=== PATIENT | female | born 1955 | race Caucasian/White ===

== ENCOUNTER 2016-06-13 10:09 | Emergency (ER) | payer OTHER ==
--- NOTE | 2016-06-13 10:49 | DIAGNOSTIC IMAGING REPORT ---
PROCEDURE: XR CHEST 1 VIEW INDICATION: SHORTNESS OF BREATH TECHNIQUE: Portable AP view 10:40 a.m. COMPARISON: 03/19/2016 chest FINDINGS: Allowing for overlying wires and electrodes, lungs are hyperexpanded, although clear (basilar parenchymal scarring). Heart and mediastinum are normal. Thorax is normal. IMPRESSION: 1. Pulmonary hyperexpansion and chronic obstructive pulmonary disease.
--- NOTE | 2016-06-13 11:52 | ED NURSING NOTES ---
Clinical Report - Nurses [facility] [address] [place] [address] 06/13/2016 10:09 Patient: WILFREDO GROVE V TRIAGE Triage time 1016 PM. Acuity: LEVEL 4. Chief Complaint: FALL OUT OF BED. Alert. No acute distress. SOFIYA COMA SCORE: [place] Coma Scale: 15- eyes open spontaneously (4); best verbal response- oriented x 4 (5); best motor response- obeys commands (6). --10:27 Krupa Ott R.N. 10:17 06/13/16. BP: 130/64 (regular adult cuff) taken on the left arm, via an automated monitor, while sitting. HR: 70. RR: 18. O2 saturation: 89% on room air. Temp: 98.4 F (oral). Pain level now: 9/10. Additional comments: placed on O2. --10:27 Krupa Ott R.N. Weight: 54.4 kg stated. Height/Length: 65 inches Per Patient. BMI: 20. --10:18 Krupa Ott R.N. Medications Advair Diskus Inhalation. Albuterol Sulfate ER Oral. Atrovent HFA Inhalation. Coreg Oral. Lisinopril Oral. Sertraline HCl Oral. Simvastatin Oral. Spiriva HandiHaler Inhalation. Ventolin HFA Inhalation. --10:19 Krupa Ott R.N. PredniSONE Oral 25 mg, , weaning- as per pt. --10:56 Krupa Ott R.N. Allergies Codeine. Penicillins. --10:19 Krupa Ott R.N. Medication/allergy information source: the patient. --10:27 Krupa Ott R.N. History Arrived by private vehicle. Historian: patient. Primary physician (in [facility]). ( Pt states 2 days ago while getting out of bed tripped over a cord and fell out of bed, pt states fell onto the heating "propane device" on her left side, hitting her left breast area, left elbow and arm. Here to get evaluated due to feeling SOB. Pt is on oxygen at night at home but has been using oxygen around the clock. Here to get evaluated). Location of injuries: left breast and left axilla. This occurred (3 days). Occurred at home. She has had difficulty breathing. No loss of consciousness. No alteration in mental status, dizziness, neck pain, extremity pain or back pain. No trouble walking or limited ROM present. Treatment [employer]: Recently seen in a medical facility; treatment- pain medication. (heating, oxy). Trauma activation: Pre-hospital notification of patient arrival was not received. PAST MEDICAL HX: Tetanus status: up-to-date. Immunizations: up-to-date. SOCIAL HX: Smoker- current status unknown. No alcohol use or drug use. No infectious disease exposure. ABUSE ASSESSMENT: No report of abuse. SELF HARM ASSESSMENT: A self harm assessment was performed. The patient answered "no" to the question "Do you have thoughts of harming or killing yourself?" and "Have you recently had thoughts about harming or killing others?". FALL RISK ASSESSMENT: Fall risk assessment completed. No fall risk identified. NUTRITIONAL RISK ASSESSMENT: The nutritional risk assessment revealed no deficiencies. FUNCTIONAL ASSESSMENT: Functional assessment: no impairments noted. LEARNING NEEDS ASSESSMENT: The learning needs assessment revealed no barriers. SKIN INTEGRITY ASSESSMENT: Skin integrity risk assessment completed. No skin integrity risk identified. --10:27 Krupa Ott R.N. SOCIAL HX: History of weekly drug use: marijuana. Recently used drugs yesterday. --11:26 Krupa Ott R.N. SOCIAL HX: ( Pt now admits to doing "pot will probably come up in my urine"). --11:27 Krupa Ott R.N. PROBLEMS: Rib Fracture. Chest Wall Pain. Cystitis. COPD - Chronic Obstructive Pulmonary Disease. Pneumonia. Emphysema. Anxiety Reaction. Atypical Chest Pain. Lifestyle / Substance Problems. Immunizations. LNMP - Last Normal Menstrual Period. Depression. Osteoporosis. --10:20 Krupa Ott R.N. Chest Pain [RuleOut]. COPD - Chronic Obstructive Pulmonary Disease [RuleOut]. Pleurisy [RuleOut]. --10:20 Krupa Ott R.N. ADDITIONAL SURGERIES: . Surgery bilateral foot surgery ( small toe). --10:20 Krupa Ott R.N. Interventions ID band on patient. --10:27 Krupa Ott R.N. PHYSICAL ASSESSMENT To room via wheelchair. GENERAL / NEURO / PSYCH: Alert. Oriented X 4. Appears in no acute distress. Appears in pain. RESPIRATORY: Decreased breath sounds in the bases bilaterally; decreased breath sounds in the right mid-lung and upper lung; decreased breath sounds in the left mid-lung in the bases bilaterally and upper lung. CVS: Left breast area : tenderness. No laceration or deformity. Capillary refill less than 2 seconds. GI / : Abdomen soft and nontender. EXTREMITIES: Left elbow: tenderness of the area of the posterior and lateral elbow. No deformity. Left forearm. SKIN: Skin intact. Skin is warm and dry. --10:30 Krupa Ott R.N. NURSING PROGRESS NOTES 10:18 06/13/16. BP: 125/61. HR: 69. RR: 18. O2 saturation: 97% on nasal cannula at 2 liters/minute. Pain level now: 11/27. --10:28 Krupa Ott R.N. The initial plan of care for this patient has been created This plan of care was discussed with the patient. Warming measures: blanket applied. Reassurance given. Two patient identifiers checked. Call light placed in reach. Side rails up x 1. Bed placed in lowest position. Brakes of bed on. --10:28 Krupa Ott R.N. 10:29 06/13/2016 Duoneb (Ipratropium-Albuterol) Neb TX Nebulizer 1 unit dose given. Given by the respiratory therapist. Allergies verified and confirmed 5 rights. --10:29 Shiela Madison 10:29 06/13/2016 Albuterol Neb TX Nebulizer 2 unit dose given. Given by the respiratory therapist. Allergies verified and confirmed 5 rights. --10:29 Shiela Madison 10:33 06/13/2016 Site #1 started via IV in the left antecubital space with an 20g angiocath; one attempt. Blood drawn: rainbow set. Labeled in the presence of the patient. --10:43 Krupa Ott R.N. 10:38 06/13/2016 Dilaudid (HYDROmorphone HCl PF) IVP 0.5 mg given. via site #1. Allergies verified, confirmed 5 rights and sedative warning given to the patient. IV patency established. IV site checked: no pain, redness, or swelling. IV flushed thoroughly pre- and post-medication administration. IVP given by RN. --10:43 Krupa Ott R.N. 10:43 06/13/2016 SOLU-MEDROL (MethylPREDNISolone Sodium Succ) IVP 125 mg given over 2 minute(s) via site #1. Allergies verified and confirmed 5 rights. IV patency established. IV site checked: no pain, redness, or swelling. IV flushed thoroughly pre- and post-medication administration. IVP given by RN. --10:43 Krupa Ott R.N. 10:49 06/13/2016 Started bag #1 500 mL IV Fluids IV NS (Saline); at 500 mL/hr over 1 hour(s) via site #1 via IV pump. Allergies verified and confirmed 5 rights. IV patency established. IV site checked: no pain, redness, or swelling. IV flushed thoroughly pre- and post-medication administration. --10:49 Krupa Ott R.N. 10:49 06/13/2016 Aspirin PO Tablets 325 mg given. Allergies verified and confirmed 5 rights. --10:49 Krupa Ott R.N. 10:51 06/13/2016 Zofran (Ondansetron HCl) IVP 4 mg given over 2 minute(s) via site #1. Allergies verified and confirmed 5 rights. IV patency established. IV site checked: no pain, redness, or swelling. IV flushed thoroughly pre- and post-medication administration. IVP given by RN. --10:51 Krupa Ott R.N. 10:51 06/13/16. BP: 120/79 (regular adult cuff) taken on the right arm, via an automated monitor, while lying. HR: 64. RR: 14. O2 saturation: 94% on room air. Pain level now: 06/27. --10:55 Krupa Ott R.N. Reassurance given. Reassessment after oxygen administered and intervention. She is calm and has had no adverse reaction. Overall patient status is improved- she states feels better. ( post breathing tx and pain meds, patient states feeling "better"). GENERAL / NEURO / PSYCH: The patient reports pain is still present but improving and currently mild in severity (left cage/lateral). RESPIRATORY: Wheezes bilaterally; decreased breath sounds and wheezes right lung base and mid-lung; left lung base and mid-lung. Call light placed in reach. --10:55 Krupa Ott R.N. Cardiac rhythm: normal sinus rhythm. --10:55 Krupa Ott R.N. EKG time: (10:37 AM). EKG was performed by a tech and shown to the ED physician. --11:01 Neville Mary 11:14 06/13/16. BP: 127/71 (regular adult cuff) taken on the right arm, via an automated monitor, while lying. HR: 68. RR: 14. O2 saturation: 94% on room air. Pain level now: 06/27. --11:16 Krupa Ott R.N. Cardiac rhythm: normal sinus rhythm. --11:16 Krupa Ott R.N. 11:06/13/16. BP: 143/69. HR: 66. RR: 14. O2 saturation: 97% on nasal cannula at 2 liters/minute. Temp: 98.3 F (oral). Pain level now: 06/27. --11:28 Krupa Ott R.N. Cardiac rhythm: normal sinus rhythm. Reassurance given. Call light placed in reach. --11:28 Krupa Ott R.N. 11:06/13/2016 Zofran IVP Response: no adverse reaction. --11:28 Krupa Ott R.N. 11:06/13/2016 Aspirin PO Response: no adverse reaction. --11:29 Krupa Ott R.N. 11:06/13/2016 SOLU-MEDROL IVP Response: no adverse reaction. --11:29 Krupa Ott R.N. 11:06/13/2016 Dilaudid IVP Response: no adverse reaction. --11:29 Ott, Krupa, R.N. Patient ID band checked for patient name and birthdate: patient confirmed. Instructions provided to collect clean catch urine and patient verbalized understanding. Clean catch urine collected with return of yellow-colored clear urine; odor is normal; sample sent to lab for urinalysis and drug screen. Specimen labeled in the presence of the patient. --11:31 Mary Lozada 12:00 06/13/2016 IV Fluids IV NS Discontinued: upon discharge. Total amount infused: 600 mL. IV patency established. IV site checked: no pain, redness, or swelling. IV flushed thoroughly. --12:08 Krupa Ott R.N. DISPOSITION / DISCHARGE 12:02 06/13/2016 Site #1 removed upon discharge. Catheter intact. Manual pressure applied. --12:02 Krupa Ott R.N. Cardiac rhythm: normal sinus rhythm. Departure time: 1210 PM. Condition at departure: improved. The goals identified in the patient's plan of care were met. No learning barriers present. Reviewed medication(s) side effects, precautions, dosing and course information. Prescription(s) given to the patient. Patient verbalized understanding. Written instructions provided in Albanian. Discharge instructions not provided and reviewed with the patient. The patient was discharged by the physician. She was discharged home and accompanied by spouse. She left the Emergency Department ambulatory and via private vehicle. Family member driving. FALL RISK ASSESSMENT: Fall risk assessment completed. No fall risk identified. --12:09 Krupa Ott R.N. 12:02 06/13/16. BP: 142/65. HR: 78. RR: 18. O2 saturation: 94% on room air. Temp: 98.6 F (oral). Pain level now: 06/27. --12:09 Krupa Ott R.N. Locked/Released at 06/13/2016 12:09 by Krupa Ott R.N.
--- NOTE | 2016-06-13 11:52 | ED CLINICAL REPORT ---
Clinical Report - Physicians/Mid Levels [place] [address] [place] [address] 06/13/2016 10:09 Patient: WILFREDO GROVE V Time Seen: 10:21. Arrived- By private vehicle. Historian- patient. HISTORY OF PRESENT ILLNESS Chief Complaint: DYSPNEA and HISTORY OF CHRONIC OBSTRUCTIVE PULMONARY DISEASE. This started 2 days ago and is still present. It was abrupt in onset and has been constant. The dyspnea is described as moderate. The dyspnea is worsened by walking and is improved by rest (movement makes chest wall pain worse). The patient has had a cough . No change in baseline cough, wheezing, dyspnea on exertion and anxiety. No fever, chills, dizziness or palpitations. She has had sharp left-sided chest pain (worse with any chest wall movement since a fall from standing height striking her chest on a baseboard heater) associated with shortness of breath. No associated nausea or vomiting. (Pt states 2 days ago while getting out of bed tripped over a cord and fell out of bed, pt states fell onto the heating "propane device" on her left side, hitting her left breast area, left elbow and arm. Here to get evaluated due to feeling SOB. Pt is on oxygen at night at home but has been using oxygen around the clock. No LOC or head or neck injury.). Similar symptoms previously: Occasionally. Recent medical care: The patient was seen recently at another facility in the emergency department. Seen for similar symptoms. ( [place] [facility] [place] problems[place] REVIEW OF SYSTEMS The patient is post-menopausal. She has not had weight loss. No muscle aches, sore throat, nasal discharge, sinus drainage or nausea. No vomiting, abdominal pain, diarrhea, black stools or bloody stools. No headache, fainting episodes, difficulty with urination, excessive urination or skin rash. Denies current . All systems otherwise negative, except as recorded above. PAST HISTORY Primary physician (in [facility]). COPD - Chronic Obstructive Pulmonary Disease - on home O2 Anxiety Reaction. Depression. Osteoporosis. Pneumonia. Takotsubo syndrome / non-ischemic cardiomyopathy Nicotine dependence UTI Rib Fracture. Chest Wall Pain. SURGERIES: Coronary angiogram - "clean coronaries" per angiogram [place] [facility] [place]. . Surgery bilateral foot surgery ( small toe). SOCIAL HISTORY Smoker- current status unknown. No alcohol use or drug use. ADDITIONAL NOTES The nursing notes have been reviewed. PHYSICAL EXAM Vital Signs: 06/13/2016 10:18 BP: 125/61. HR: 69. RR: 18. O2 saturation: 97%. Pain level now: 11/27. 06/13/2016 10:17 BP: 130/64. HR: 70. RR: 18. O2 saturation: 89%. Temp: 98.4 F. Pain level now: 11/27. Appearance: Alert. Anxious. Patient in mild distress. Eyes: Eyes normal inspection. No pale conjunctivae or scleral icterus. ENT: Pharynx normal. Uvula midline. No nasal discharge or pharyngeal erythema. The mucous membranes are not dry. Neck: Normal inspection. No jugular venous distention. Neck supple. CVS: Normal heart rate and rhythm. Heart sounds normal. Pulses normal. Respiratory: Mild respiratory distress with accessory muscle use and tachypnea. Moderate left upper and mid- costochondral tenderness. The tenderness is well-localized and reproduces the patient's subjective complaint. Mildly decreased air movement bilaterally. Expiratory moderate bilateral wheezes present. No stridor or rales. Abdomen: Soft and nontender. Back: Normal inspection. Skin: Skin warm and dry. Normal skin color. No rash. Normal skin turgor. Extremities: Extremities exhibit normal ROM. No calf tenderness. No lower extremity edema. Neuro: Oriented X 3. No motor deficit. LABS, X-RAYS, AND EKG EKG: EKG time: (10:37). Normal sinus rhythm. Rate: 68. Left atrial enlargement. Normal QRS complex. Normal axis. Normal ST and T waves. Prior EKG unavailable. The study has been interpreted contemporaneously by me. The EKG appears to be a good tracing. Rhythm Strip #1: Normal sinus rhythm. Regular rhythm. Narrow QRS complexes. No ectopy. Chest X-ray: No acute disease. Hyperinflation present. (IMPRESSION: 1. Pulmonary hyperexpansion and chronic obstructive pulmonary disease). Views: AP (portable). Technique: good. The X-rays were interpreted contemporaneously by me. The X-rays were discussed with the radiologist (via PACS note). Laboratory Tests: CBC w Diff: (BENJA: 06/13/2016 10:32) ( MsgRcvd 06/13/2016 10:45) Final results Test Result Flag Units (Reference) WHITE BLOOD COUNT 17.8 H K/uL (4.5-11.5) RED BLOOD COUNT 4.35 M/uL (4.00-5.20) HEMOGLOBIN 12.9 gm/dL (12.0-16.0) HEMATOCRIT 38.5 % (36.0-46.0) MEAN CELL VOLUME 89 fL (80-100) MEAN CORPUSCULAR HGB 30 pg (26-34) MEAN CORPUSCULAR HGB CONC 33 g/dL (31-37) RED CELL DISTRIBUTION WIDTH 13.9 % (11.6-14.8) PLATELET COUNT 210 K/uL (150-400) NEUTROPHIL % 93.0 H % (50-75) LYMPH % 6.0 L % (25-40) MONO % 0.5 L % (3-14) EOSINOPHIL % 0.5 % (0-4) BASOPHIL % 0 % (0-2) PT with INR: (BENJA: 06/13/2016 10:32) ( MsgRcvd 06/13/2016 10:54) Final results Test Result Flag Units (Reference) INR 0.9 (0.8-1.2) Low Intensity Therapy: INR 1.5-2.0 PT range 18.5-23.1Mod.Intensity Therapy: INR 2.0-3.0 PT range 23.1-31.5High Intensity Therapy: INR 2.5-3.5 PT range 27.4-35.5High Intensity Therapy 2: INR 3.0-4.0 PT range 31.5-39.3 D-DIMER QUANTITATIVE 0.41 ug/mLFEU (0.27-0.52) The primary value of this quantitative assay relates toits negative predictive value (i.e. exclusion) of pulmonaryembolism/deep vein thrombosis/DIC.Elevated levels of d-dimer may also occur with:, age, cancer, inflammation, liver disease,post-op, infection, hematoma, coronary disease, peripheralarteriopathy, bleeding disorders and thrombolytic treatment.Results should be correlated with other clinical andradiological data.Testing Methodology: Latex Immunoassay BNP: (BENJA: 06/13/2016 10:32) ( MtgRcvd 06/13/2016 11:15) Final results Test Result Flag Units (Reference) B-TYPE NATRIURETIC PEPTIDE 38.8 pg/ml (5-100) CHEM 13 PANEL: (BENJA: 06/13/2016 10:32) ( MtgRcvd 06/13/2016 11:20) IP Test Result Flag Units (Reference) GLUCOSE 102 mg/dL (70-110) BUN 10 mg/dL (7-18) CREATININE 0.7 mg/dL (0.6-1.3) Estimated GFR >60 mL/min Estimated GFR- >60 mL/min Note: Persistent reduction over 3 months in eGFR<60 mL/min/1.73 m2 defines CKD. Patients with eGFR values>=60 mL/min/1.73 m2 may also have CKD if evidence ofpersistent proteinuria. Additional information may be foundat www.kidney.org. SODIUM 139 mmol/L (136-145) POTASSIUM 4.0 mmol/L (3.5-5.1) CHLORIDE 100 mmol/L (98-107) CARBON DIOXIDE 34 H mmol/L (21-32) CALCIUM 8.9 mg/dL (8.5-10.1) TOTAL PROTEIN 7.1 g/dL (6.4-8.2) ALBUMIN 3.6 g/dL (3.3-5.0) BILIRUBIN, TOTAL 0.4 mg/dL (0.0-1.0) ALKALINE PHOSPHATASE 36 L U/L (46-116) AST (SGOT) 14 L U/L (15-37) ALT (SGPT) 17 U/L (12-78) MAGNESIUM 1.9 mg/dL (1.8-2.4) AMYLASE 53 U/L (25-115) CPK 31 U/L (24-260) TROPONIN I <0.05 ng/mL (0.00-1.5) TROPONIN REFERENCE RANGE:<0.1 NEGATIVE0.1-1.5 INDETERMINANT>1.5 POSITIVE . Pulse Oximetry: 06/13/2016 10:17 O2 saturation: 89%. (FIO2 - room air). Interpretation: hypoxemia. PROGRESS AND PROCEDURES Course of Care: Normal Saline 1 liter IVPB given. Zofran 4 mg IVP given. Dilaudid 0.5 mg IVP given. Pt with COPD exacerbation in the setting of a chest wall injury. Pt had coronary cath 1 year ago which was "clean", but chest pain is clearly mechanical injury after fall 3 days ago. She is improved after nebs and treatment as above. She states that the main reason for her ED visit today was treatment for her pain. Labs with increase serum WBC's which is c/w chronic steroid use - doubt pneumonia, but I will cover her with a course of abx for bacterial bronchitis / COPD exacerbation. I have arranged for close out pt follow up with her clinic Patient is stable. Physical exam findings are improved. Symptoms much better. 12:02 06/13/16. BP: 142/65. HR: 78. RR: 18. O2 saturation: 94% on room air. Temp: 98.6 F (oral). Pain level now: 4/10. Patient/family counseled. Old ED records reviewed. Patient has had multiple ED visits ([place] [facility] [place] [facility] reviewed). Disposition: Discharged. Condition: stable and improved. CLINICAL IMPRESSION Acute exacerbation of COPD (emphysematous) Fall on same level by tripping. Minor blunt chest injury. Left anterior chest wall contusion. INSTRUCTIONS Do not smoke. Seek medical help to quit smoking. (Follow up appt @ 09:05 06/15 w/ Dr. Torres). Warnings: Further evaluation is necessary in order to conduct further tests and assess the possibility of serious illness. It is very important to follow up with a physician. SEDATIVE MEDICATION: You were given sedative medication during your visit. Do not drive or operate dangerous machinery. CONTROLLED SUBSTANCE WARNINGS. GENERAL WARNINGS: Return or contact your physician immediately if your condition worsens or changes unexpectedly, if not improving as expected, or if other problems arise. Your Current Medications: CONTINUE TAKING THE FOLLOWING MEDICATIONS: Advair Diskus Inhalation. Albuterol Sulfate ER Oral. Atrovent HFA Inhalation. Coreg Oral. Lisinopril Oral. PredniSONE Oral : 25 mg, weaning- as per pt. Sertraline HCl Oral. Simvastatin Oral. Spiriva HandiHaler Inhalation. Ventolin HFA Inhalation. Prescription Medications: Hydrocodone/APAP 5mg / 325mg: take 1-2 orally every 8 hours as needed for pain. Dispense ten (10). No refill. Zithromax 250 mg tablets: take 2 orally today, followed by 1 daily for the next 4 days. No refills. Substitution is permissible. Prednisone 10 mg tablets: take 4 orally every day for 5 days, then 2 every day for 3 days, then 1 every day for 2 days. Dispense twenty-eight (28). No refills. Follow-up: Follow up with your doctor AN APPOINTMENT HAS BEEN MADE FOR YOU AT YOUR CLINIC ON MondayMay AT 09:[address] TORRES - PLEASE ARRIVE AT LEAST 5 MIN EARLY. (Electronically signed by Monster Gusman DO 06/13/2016 13:33)
--- NOTE | 2016-06-13 11:52 | ED ORDER SUMMARY ---
..... Patient: WILFREDO GROVE V OrderSheet Merged With [facility] VisitID: [id number] [address] [place] [address] 60y, F Registration Date/Time: 06/13/2016 ORDER SHEET Weight: 54.4 kg (stated) Allergies: Codeine, Penicillins GENERAL ORDERS: Chest 1V Urgent (10:06/13/2016 PHutchinson DO) (Ack 10:27 KHoerner) (10:43 EHassan R.N.) Food And Beverage Intern (Continuous) (10:06/13/2016 PHutchinson DO) (Ack 10:27 KHoerner) (10:42 EHassan R.N.) UA-Culture if indicated Urgent (10:06/13/2016 PHutchinson DO) (Ack 10:27 KHoerner) (11:28 EHassan R.N.) Cardiac Panel Stat (10:06/13/2016 PHutchinson DO) (Ack 10:27 KHoerner) (10:35 KWilliams R.N.) BNP Urgent (10:06/13/2016 PHutchinson DO) (Ack 10:27 KHoerner) (10:35 KWilliams R.N.) D-Dimer Urgent (10:06/13/2016 PHutchinson DO) (Ack 10:27 KHoerner) (10:35 KWilliams R.N.) Amylase Urgent (10:06/13/2016 PHutchinson DO) (Ack 10:27 KHoerner) (10:35 KWilliams R.N.) PT with INR Urgent (10:06/13/2016 PHutchinson DO) (Ack 10:27 KHoerner) (10:35 KWilliams R.N.) TSH Urgent (10:06/13/2016 PHutchinson DO) (Ack 10:27 KHoerner) (10:35 KWilliams R.N.) Urine Drug Screen Urgent (10:06/13/2016 PHutchinson DO) (Ack 10:27 KHoerner) (11:28 EHassan R.N.) Pulse oxim[facility] ([facility]/2016 [facility] (Ack 10:27 MANUELAoerner) (10:35 Roger R.N.) EKG - ER Stat (10:06/13/2016 [facility]) (Ack 10:27 MANUELAoerner) (10:35 Andreaams R.N.) Vitals (10:06/13/2016 [facility]) (Ack 10:27 Darrellrbyron) (10:42 EHangelian R.N.) [facility] ([facility] - recent ED visit 04/20/2016) (10:34 06/13/2016 [facility]) (Ack 10:35 Kenneth) (10:38 Darrellrbyron) MEDICATION ORDERS: Aspirin PO 325 mg (NOW) (10:06/13/2016 [facility] DO) (10:49 Mark R.N.) DuoNeb Neb Tx 1 unit dose (NOW) (10:06/13/2016 [facility] DO) (10:29 Shandra) Albuterol Neb Tx 2 unit doses (NOW, HHN) (10:06/13/2016 [facility] DO) (10:29 Shandra) IV FLUIDS: IV NS : initial bolus 500 mL (1000 mL/hr), then 250 mL/hr for X2 (NOW) (10:06/13/2016 [facility] DO) (10:49 Mark R.N.) Solu-MEDROL IV 125 mg (NOW) (10:06/13/2016 [facility] DO) (10:43 EHassan R.N.) Dilaudid IV 0.5 mg (HIGH ALERT MEDICATION, NOW) (10:06/13/2016 [facility] DO) (10:43 Varshan R.N.) Zofran IV 4 mg (NOW) (:06/13/2016 [facility] DO) (10:51 EHassan R.N.) ORDER SHEET NOTES: [Electronically signed by Krupa Ott R.N. (12:09 06/13/2016)] [Electronically signed by Monster Gusman DO (13:33 06/13/2016)] [Electronically locked/signed by Krupa Ott R.N. (12:09 06/13/2016)]
--- NOTE | 2016-06-13 11:52 | ED CLINICAL REPORT ---
Clinical Report - Physicians/Mid Levels [place] [address] [place] [address] 06/13/2016 10:09 Patient: WILFREDO GROVE V Time Seen: 10:21. Arrived- By private vehicle. Historian- patient. HISTORY OF PRESENT ILLNESS Chief Complaint: DYSPNEA and HISTORY OF CHRONIC OBSTRUCTIVE PULMONARY DISEASE. This started 2 days ago and is still present. It was abrupt in onset and has been constant. The dyspnea is described as moderate. The dyspnea is worsened by walking and is improved by rest (movement makes chest wall pain worse). The patient has had a cough . No change in baseline cough, wheezing, dyspnea on exertion and anxiety. No fever, chills, dizziness or palpitations. She has had sharp left-sided chest pain (worse with any chest wall movement since a fall from standing height striking her chest on a baseboard heater) associated with shortness of breath. No associated nausea or vomiting. (Pt states 2 days ago while getting out of bed tripped over a cord and fell out of bed, pt states fell onto the heating "propane device" on her left side, hitting her left breast area, left elbow and arm. Here to get evaluated due to feeling SOB. Pt is on oxygen at night at home but has been using oxygen around the clock. No LOC or head or neck injury.). Similar symptoms previously: Occasionally. Recent medical care: The patient was seen recently at another facility in the emergency department. Seen for similar symptoms. ( [place] [facility] [place] similar problems[place] REVIEW OF SYSTEMS The patient is post-menopausal. She has not had weight loss. No muscle aches, sore throat, nasal discharge, sinus drainage or nausea. No vomiting, abdominal pain, diarrhea, black stools or bloody stools. No headache, fainting episodes, difficulty with urination, excessive urination or skin rash. Denies current . All systems otherwise negative, except as recorded above. PAST HISTORY Primary physician (in [facility]). COPD - Chronic Obstructive Pulmonary Disease - on home O2 Anxiety Reaction. Depression. Osteoporosis. Pneumonia. Takotsubo syndrome / non-ischemic cardiomyopathy Nicotine dependence UTI Rib Fracture. Chest Wall Pain. SURGERIES: Coronary angiogram - "clean coronaries" per angiogram done [place] [facility] [place]. . Surgery bilateral foot surgery ( small toe). SOCIAL HISTORY Smoker- current status unknown. No alcohol use or drug use. ADDITIONAL NOTES The nursing notes have been reviewed. PHYSICAL EXAM Vital Signs: 06/13/2016 10:18 BP: 125/61. HR: 69. RR: 18. O2 saturation: 97%. Pain level now: 11/27. 06/13/2016 10:17 BP: 130/64. HR: 70. RR: 18. O2 saturation: 89%. Temp: 98.4 F. Pain level now: 11/27. Appearance: Alert. Anxious. Patient in mild distress. Eyes: Eyes normal inspection. No pale conjunctivae or scleral icterus. ENT: Pharynx normal. Uvula midline. No nasal discharge or pharyngeal erythema. The mucous membranes are not dry. Neck: Normal inspection. No jugular venous distention. Neck supple. CVS: Normal heart rate and rhythm. Heart sounds normal. Pulses normal. Respiratory: Mild respiratory distress with accessory muscle use and tachypnea. Moderate left upper and mid- costochondral tenderness. The tenderness is well-localized and reproduces the patient's subjective complaint. Mildly decreased air movement bilaterally. Expiratory moderate bilateral wheezes present. No stridor or rales. Abdomen: Soft and nontender. Back: Normal inspection. Skin: Skin warm and dry. Normal skin color. No rash. Normal skin turgor. Extremities: Extremities exhibit normal ROM. No calf tenderness. No lower extremity edema. Neuro: Oriented X 3. No motor deficit. LABS, X-RAYS, AND EKG EKG: EKG time: (10:37). Normal sinus rhythm. Rate: 68. Left atrial enlargement. Normal QRS complex. Normal axis. Normal ST and T waves. Prior EKG unavailable. The study has been interpreted contemporaneously by me. The EKG appears to be a good tracing. Rhythm Strip #1: Normal sinus rhythm. Regular rhythm. Narrow QRS complexes. No ectopy. Chest X-ray: No acute disease. Hyperinflation present. (IMPRESSION: 1. Pulmonary hyperexpansion and chronic obstructive pulmonary disease). Views: AP (portable). Technique: good. The X-rays were interpreted contemporaneously by me. The X-rays were discussed with the radiologist (via PACS note). Laboratory Tests: CBC w Diff: (BENJA: 06/13/2016 10:32) ( MsgRcvd 06/13/2016 10:45) Final results Test Result Flag Units (Reference) WHITE BLOOD COUNT 17.8 H K/uL (4.5-11.5) RED BLOOD COUNT 4.35 M/uL (4.00-5.20) HEMOGLOBIN 12.9 gm/dL (12.0-16.0) HEMATOCRIT 38.5 % (36.0-46.0) MEAN CELL VOLUME 89 fL (80-100) MEAN CORPUSCULAR HGB 30 pg (26-34) MEAN CORPUSCULAR HGB CONC 33 g/dL (31-37) RED CELL DISTRIBUTION WIDTH 13.9 % (11.6-14.8) PLATELET COUNT 210 K/uL (150-400) NEUTROPHIL % 93.0 H % (50-75) LYMPH % 6.0 L % (25-40) MONO % 0.5 L % (3-14) EOSINOPHIL % 0.5 % (0-4) BASOPHIL % 0 % (0-2) PT with INR: (BENJA: 06/13/2016 10:32) ( MsgRcvd 06/13/2016 10:54) Final results Test Result Flag Units (Reference) INR 0.9 (0.8-1.2) Low Intensity Therapy: INR 1.5-2.0 PT range 18.5-23.1Mod.Intensity Therapy: INR 2.0-3.0 PT range 23.1-31.5High Intensity Therapy: INR 2.5-3.5 PT range 27.4-35.5High Intensity Therapy 2: INR 3.0-4.0 PT range 31.5-39.3 D-DIMER QUANTITATIVE 0.41 ug/mLFEU (0.27-0.52) The primary value of this quantitative assay relates toits negative predictive value (i.e. exclusion) of pulmonaryembolism/deep vein thrombosis/DIC.Elevated levels of d-dimer may also occur with:, age, cancer, inflammation, liver disease,post-op, infection, hematoma, coronary disease, peripheralarteriopathy, bleeding disorders and thrombolytic treatment.Results should be correlated with other clinical andradiological data.Testing Methodology: Latex Immunoassay BNP: (BENJA: 06/13/2016 10:32) ( HigRcvd 06/13/2016 11:15) Final results Test Result Flag Units (Reference) B-TYPE NATRIURETIC PEPTIDE 38.8 pg/ml (5-100) CHEM 13 PANEL: (BENJA: 06/13/2016 10:32) ( HigRcvd 06/13/2016 11:20) IP Test Result Flag Units (Reference) GLUCOSE 102 mg/dL (70-110) BUN 10 mg/dL (7-18) CREATININE 0.7 mg/dL (0.6-1.3) Estimated GFR >60 mL/min Estimated GFR- >60 mL/min Note: Persistent reduction over 3 months in eGFR<60 mL/min/1.73 m2 defines CKD. Patients with eGFR values>=60 mL/min/1.73 m2 may also have CKD if evidence ofpersistent proteinuria. Additional information may be foundat www.kidney.org. SODIUM 139 mmol/L (136-145) POTASSIUM 4.0 mmol/L (3.5-5.1) CHLORIDE 100 mmol/L (98-107) CARBON DIOXIDE 34 H mmol/L (21-32) CALCIUM 8.9 mg/dL (8.5-10.1) TOTAL PROTEIN 7.1 g/dL (6.4-8.2) ALBUMIN 3.6 g/dL (3.3-5.0) BILIRUBIN, TOTAL 0.4 mg/dL (0.0-1.0) ALKALINE PHOSPHATASE 36 L U/L (46-116) AST (SGOT) 14 L U/L (15-37) ALT (SGPT) 17 U/L (12-78) MAGNESIUM 1.9 mg/dL (1.8-2.4) AMYLASE 53 U/L (25-115) CPK 31 U/L (24-260) TROPONIN I <0.05 ng/mL (0.00-1.5) TROPONIN REFERENCE RANGE:<0.1 NEGATIVE0.1-1.5 INDETERMINANT>1.5 POSITIVE . Pulse Oximetry: 06/13/2016 10:17 O2 saturation: 89%. (FIO2 - room air). Interpretation: hypoxemia. PROGRESS AND PROCEDURES Course of Care: Normal Saline 1 liter IVPB given. Zofran 4 mg IVP given. Dilaudid 0.5 mg IVP given. Pt with COPD exacerbation in the setting of a chest wall injury. Pt had coronary cath 1 year ago which was "clean", but chest pain is clearly mechanical injury after fall 3 days ago. She is improved after nebs and treatment as above. She states that the main reason for her ED visit today was treatment for her pain. Labs with increase serum WBC's which is c/w chronic steroid use - doubt pneumonia, but I will cover her with a course of abx for bacterial bronchitis / COPD exacerbation. I have arranged for close out pt follow up with her clinic Patient is stable. Physical exam findings are improved. Symptoms much better. 12:02 06/13/16. BP: 142/65. HR: 78. RR: 18. O2 saturation: 94% on room air. Temp: 98.6 F (oral). Pain level now: 4/10. Patient/family counseled. Old ED records reviewed. Patient has had multiple ED visits ([place] [facility] [place] [facility] reviewed). Disposition: Discharged. Condition: stable and improved. CLINICAL IMPRESSION Acute exacerbation of COPD (emphysematous) Fall on same level by tripping. Minor blunt chest injury. Left anterior chest wall contusion. INSTRUCTIONS Do not smoke. Seek medical help to quit smoking. (Follow up appt @ 09:05 06/15 w/ Dr. Torres). Warnings: Further evaluation is necessary in order to conduct further tests and assess the possibility of serious illness. It is very important to follow up with a physician. SEDATIVE MEDICATION: You were given sedative medication during your visit. Do not drive or operate dangerous machinery. CONTROLLED SUBSTANCE WARNINGS. GENERAL WARNINGS: Return or contact your physician immediately if your condition worsens or changes unexpectedly, if not improving as expected, or if other problems arise. Your Current Medications: CONTINUE TAKING THE FOLLOWING MEDICATIONS: Advair Diskus Inhalation. Albuterol Sulfate ER Oral. Atrovent HFA Inhalation. Coreg Oral. Lisinopril Oral. PredniSONE Oral : 25 mg, weaning- as per pt. Sertraline HCl Oral. Simvastatin Oral. Spiriva HandiHaler Inhalation. Ventolin HFA Inhalation. Prescription Medications: Hydrocodone/APAP 5mg / 325mg: take 1-2 orally every 8 hours as needed for pain. Dispense ten (10). No refill. Zithromax 250 mg tablets: take 2 orally today, followed by 1 daily for the next 4 days. No refills. Substitution is permissible. Prednisone 10 mg tablets: take 4 orally every day for 5 days, then 2 every day for 3 days, then 1 every day for 2 days. Dispense twenty-eight (28). No refills. Follow-up: Follow up with your doctor AN APPOINTMENT HAS BEEN MADE FOR YOU AT YOUR CLINIC ON MondayMay AT 09:[address] TORRES - PLEASE ARRIVE AT LEAST 5 MIN EARLY. (Electronically signed by Monster uGsman DO 06/13/2016 13:33)
--- NOTE | 2016-06-13 11:52 | ED ORDER SUMMARY ---
..... Patient: WILFREDO GROVE V OrderSheet [facility] VisitID: [id number] [address] [place] [address] 60y, F Registration Date/Time: 06/13/2016 ORDER SHEET Weight: 54.4 kg (stated) Allergies: Codeine, Penicillins GENERAL ORDERS: Chest 1V Urgent (10:06/13/2016 PHutchinson DO) (Ack 10:27 KHoerner) (10:43 EHassan R.N.) Pipelines Laborer (Continuous) (10:06/13/2016 PHutchinson DO) (Ack 10:27 KHoerner) (10:42 EHassan R.N.) UA-Culture if indicated Urgent (10:06/13/2016 PHutchinson DO) (Ack 10:27 KHoerner) (11:28 EHassan R.N.) Cardiac Panel Stat (10:06/13/2016 PHutchinson DO) (Ack 10:27 KHoerner) (10:35 KWilliams R.N.) BNP Urgent (10:06/13/2016 PHutchinson DO) (Ack 10:27 KHoerner) (10:35 KWilliams R.N.) D-Dimer Urgent (10:06/13/2016 PHutchinson DO) (Ack 10:27 KHoerner) (10:35 KWilliams R.N.) Amylase Urgent (10:06/13/2016 PHutchinson DO) (Ack 10:27 KHoerner) (10:35 KWilliams R.N.) PT with INR Urgent (10:06/13/2016 PHutchinson DO) (Ack 10:27 KHoerner) (10:35 KWilliams R.N.) TSH Urgent (10:06/13/2016 PHutchinson DO) (Ack 10:27 KHoerner) (10:35 KWilliams R.N.) Urine Drug Screen Urgent (10:06/13/2016 PHutchinson DO) (Ack 10:27 KHoerner) (11:28 EHassan R.N.) [facility] (Ack 10:27 MANUELAoerner) (10:35 Roger R.N.) EKG - ER Stat (10:06/13/2016 [facility] (Ack 10:27 AMNUELAoerner) (10:35 Andreaams R.N.) Vitals (10:06/13/2016 [facility] (Ack 10:27 Darrellrbyron) (10:42 EHangelian R.N.) [place] [facility] [place]/20/2016) (10:34 [facility]13/2016 [facility] (Ack 10:35 Kenneth) (10:38 Darrellrbyron) MEDICATION ORDERS: Aspirin PO 325 mg (NOW) ([facility] (10:49 Mark R.N.) DuoNeb Neb Tx 1 unit dose (NOW) (10:06/13/2016 [facility] DO) (10:29 Shandra) Albuterol Neb Tx 2 unit doses (NOW, HHN) (10:06/13/2016 [facility] DO) (10:29 Shandra) IV FLUIDS: IV NS : initial bolus 500 mL (1000 mL/hr), then 250 mL/hr for X2 (NOW) (10:06/13/2016 [facility] DO) (10:49 Mark R.N.) Solu-MEDROL IV 125 mg (NOW) (10:06/13/2016 [facility] DO) (10:43 EHassan R.N.) Dilaudid IV 0.5 mg (HIGH ALERT MEDICATION, NOW) (10:06/13/2016 [facility] DO) (10:43 Varshan R.N.) Zofran IV 4 mg (NOW) (:06/13/2016 [facility] DO) (10:51 EHassan R.N.) ORDER SHEET NOTES: [Electronically signed by Krupa Ott R.N. (12:09 06/13/2016)] [Electronically signed by Monster Gusman DO (13:33 06/13/2016)] [Electronically locked/signed by Krupa Ott R.N. (12:09 06/13/2016)]
--- NOTE | 2016-06-13 13:34 | ED MED RECONCILIATION SUMMARY ---
Patient: WILFREDO GROVE V Medication Reconciliation Report [facility] VisitID: [id number] [address] [place] [address] 60y, F Registration Date/Time: 06/13/2016 Weight: 54.4 kg Height/Length: 65 in. BMI: 20.0 ALLERGIES: Codeine, Penicillins The patient's Home Medications are listed below: CONTINUE TAKING THE FOLLOWING MEDICATIONS: Advair Diskus Inhalation Albuterol Sulfate ER Oral Atrovent HFA Inhalation Coreg Oral Lisinopril Oral PredniSONE Oral 25 mg, weaning- as per pt Sertraline HCl Oral Simvastatin Oral Spiriva HandiHaler Inhalation Ventolin HFA Inhalation The source(s) of the original Home Medication information: patient The following Medications were given to the patient in the Emergency Department: Duoneb [Neb Tx] Neb TX 1 unit dose, administered: 06/13/2016 10:29:00 AM Albuterol [Neb Tx] Neb TX 2 unit dose, administered: 06/13/2016 10:29:00 AM Dilaudid [IVP] IVP 0.5 mg, administered: 06/13/2016 10:38:00 AM SOLU-MEDROL [IVP] IVP 125 mg, administered: 06/13/2016 10:43:00 AM IV NS IV Fluids bolus 0, then 500 mL/hr, administered: 06/13/2016 10:49:00 AM Aspirin [PO] PO 325 mg, administered: 06/13/2016 10:49:00 AM Zofran [IVP] IVP 4 mg, administered: 06/13/2016 10:51:00 AM The following Medications were prescribed to the patient: Hydrocodone/APAP 5mg / 325mg: take 1-2 orally every 8 hours as needed for pain. Dispense ten (10). No refill. -- Monster Gusman DO Zithromax 250 mg tablets: take 2 orally today, followed by 1 daily for the next 4 days. No refills. Substitution is permissible. -- Monster Gusman DO Prednisone 10 mg tablets: take 4 orally every day for 5 days, then 2 every day for 3 days, then 1 every day for 2 days. Dispense twenty-eight (28). No refills. -- Monster Gusman, DO
--- NOTE | 2016-06-13 13:34 | ED DISCHARGE INSTRUCTIONS ---
Patient: WILFREDO GROVE V General Instructions [facility] VisitID: [id number] [place] [address] 60y, F Registration Date/Time: 06/13/2016 Acute exacerbation of COPD (emphysematous) Fall on same level by tripping. Minor blunt chest injury. Left anterior chest wall contusion. INSTRUCTIONS Do not smoke. Seek medical help to quit smoking. (Follow up appt @ 09:05 06/15 w/ Dr. Torres). Warnings: Further evaluation is necessary in order to conduct further tests and assess the possibility of serious illness. It is very important to follow up with a physician. SEDATIVE MEDICATION: You were given sedative medication during your visit. Do not drive or operate dangerous machinery. CONTROLLED SUBSTANCE WARNINGS. GENERAL WARNINGS: Return or contact your physician immediately if your condition worsens or changes unexpectedly, if not improving as expected, or if other problems arise. Your Current Medications: CONTINUE TAKING THE FOLLOWING MEDICATIONS: Advair Diskus Inhalation. Albuterol Sulfate ER Oral. Atrovent HFA Inhalation. Coreg Oral. Lisinopril Oral. PredniSONE Oral : 25 mg, weaning- as per pt. Sertraline HCl Oral. Simvastatin Oral. Spiriva HandiHaler Inhalation. Ventolin HFA Inhalation. Prescription Medications: Hydrocodone/APAP 5mg / 325mg: take 1-2 orally every 8 hours as needed for pain. Dispense ten (10). No refill. Zithromax 250 mg tablets: take 2 orally today, followed by 1 daily for the next 4 days. No refills. Substitution is permissible. Prednisone 10 mg tablets: take 4 orally every day for 5 days, then 2 every day for 3 days, then 1 every day for 2 days. Dispense twenty-eight (28). No refills. Follow-up: Follow up with your doctor AN APPOINTMENT HAS BEEN MADE FOR YOU AT YOUR CLINIC ON MondayMay AT 09:[address] TORRES - PLEASE ARRIVE AT LEAST 5 MIN EARLY. ADDITIONAL INFORMATION COPD Flare Both emphysema and chronic bronchitis are forms of chronic obstructive pulmonary disease (COPD). It is most often caused by many years of smoking tobacco. Many things can make your lung disease suddenly get worse. These causes include the common cold, pneumonia, acute bronchitis, missing doses of your regular breathing medicines, or being around smoke, dust, or other air pollutants. A COPD flare may last 7 to 14 days. Your doctor may prescribe medicineto relax your airways and prevent wheezing. Your doctor may also prescribe antibiotics if he or she thinks you havea bacterial infection. Prednisone can helpease inflammation in a severe attack. Home care Here are things you can do at home: Drink lots of water or other fluids (at least 10 glasses a day) during an attack. This will loosen lung secretions and make it easier to breathe. If you have heart or kidney disease, check with your doctor before you drink extra amounts of fluids. Take prescribed medicine exactly at the times advised. If you have a hand-held inhaler or aerosol breathing medicine, don't use it more than once every 4 hours, unless your doctor tells you to. If you were givenan antibiotic or prednisone, take all of the medicine even if you are feeling better after a few days. Don't smoke. Avoid being aroundthe smoke of others. If you were given an inhaler, use it exactly as directed. If you need to use it more often than prescribed, your condition may be getting worse. Call your doctor. Follow-up care Follow up with your health care provider.If you are 65 or older or have chronic asthma or COPD, you should get a single dose of the pneumococcal vaccine and aflu shot each year. You may need a second dose of the pneumococcal vaccine if you had the first dose at a younger age. Your health care provider will let you know if you need a second dose. For all other people, the usual dose for the pneumococcal vaccine is 1 or 2 shots. Yourprovider can discuss this with you. When to seek medical care Get prompt medical attention ifany of these occur: Increased wheezing or shortness of breath Need to use your inhalers more often than usual without relief Fever of 100.4F(38C) or higher, or as directed by your health care provider Coughing up lots of dark-colored or bloody sputum (mucus) Chest pain with each breath You do not start to improve within 24 hours Mechanical Fall You have had a fall today. It appears that the cause is mechanical. That means that you slipped, tripped or lost your balance. If your fall had been due to fainting or a seizure, further tests would be required. Home Care: Rest today and resume your normal activities when you are feeling back to normal. If you were injured during the fall, follow the advice from your doctor regarding care of your injury. You may use acetaminophen (Tylenol) or ibuprofen (Motrin, Advil) to control pain, unless another pain medicine was prescribed. [NOTE: If you have chronic liver or kidney disease or ever had a stomach ulcer or GI bleeding, talk with your doctor before using these medicines.] Fall Prevention: Was there anything that caused your fall that can be fixed, removed, or replaced? Make your home safe by keeping walkways clear of objects you may trip over. Use non-slip pads under rugs. Do not walk in poorly lit areas. Do not stand on chairs or wobbly ladders. Use caution when reaching overhead or looking upward. This position can cause a loss of balance. Be sure your shoes fit properly, have non-slip bottoms and are in good condition. Be cautious when going up and down curbs, and walking on uneven sidewalks. If your balance is poor, consider using a cane or walker. Stay as active as you can. Balance, flexibility, strength, and endurance all come from exercise. They all play a role in preventing falls. Follow Up with your doctor or as advised by our staff. Get Prompt Medical Attention if any of the following occur: Repeated mechanical falls, or unexplained falls Dizziness, fainting or seizure Severe headache Chest pain or shortness of breath Palpitations (very rapid or very slow or irregular heartbeat) Blood in vomit, stools (black or red color) Weakness of an arm or leg or one side of the face Difficulty with speech or vision Chest Contusion Acontusion is a bruise to the skin, muscle or ribs. It may cause pain, tenderness, swelling and a purplish discoloration. Contusions take a few days to a few weeks to heal. Home Care: Rest. You should not be doing any heavy lifting or strenuous exertion, or any activity that causes pain. You may use acetaminophen (Tylenol) or ibuprofen (Motrin, Advil) to control pain, unless another pain medicine was prescribed. [ NOTE: If you have chronic liver or kidney disease or ever had a stomach ulcer or GI bleeding, talk with your doctor before using these medicines.] Follow Up with your doctor during the next week or as directed. Get Prompt Medical Attention if any of the following occur: Shortness of breath Increasing chest pain with breathing Dizziness, weakness or fainting New or worsening of abdominal pain Fever of 100.4F (38C) or higher, or as directed by your healthcare provider How To Quit Smoking Smoking is one of the hardest habits to break. About half of all those who have ever smoked have been able to quit, and most of those (about 70%) who still smoke want to quit. Here are some of the best ways to stop smoking. Keep Trying: It takes most smokers about 8 tries before they are finally able to fully quit. So, the more often you try and fail, the better your chance of quitting the next time! So, don't give up! Go Cold [place]: Most ex-smokers quit cold turkey. Trying to cut back gradually doesn't seem to work as well, perhaps because it continues the smoking habit. Also, it is possible to fool yourself by inhaling more while smoking fewer cigarettes. This results in the same amount of nicotine in your body! Get Support: Support programs can make an important difference, especially for the heavy smoker. These groups offer lectures, methods to change your behavior and peer support. Call the free national Quitline for more information. 148-BRRN-AJQ (181-631-6645). Low-cost or free programs are offered by many hospitals, local chapters of the [employer] (860-796-0412) and the [employer] (182-480-2275). Support at home is important too. Non-smokers can help by offering praise and encouragement. If the smoker fails to quit, encourage them to try again! Wfqo-Lhm-Jkdyhjx Medicines: For those who can't quit on their own, Nicotine Replacement Therapy (NRT) may make quitting much easier. Certain aids such as the nicotine patch, gum and lozenge are available without a prescription. However, it is best to use these under the guidance of your doctor. The skin patch provides a steady supply of nicotine to the body. Nicotine gum and lozenge gives temporary bursts of low levels of nicotine. Both methods take the edge off the craving for cigarettes. WARNING: If you feel symptoms of nicotine overdose, such as nausea, vomiting, dizziness, weakness, or fast heartbeat, stop using these and see your doctor. Prescription Medicines: After evaluating your smoking patterns and prior attempts at quitting, your doctor may offer a prescription medicine such as bupropion (Zyban, Wellbutrin), varenicline (Chantix, Champix), a niocotine inhaler or nasal spray. Each has its unique advantage and side effects which your doctor can review with you. Health Benefits Of Quitting: The benefits of quitting start right away and keep improving the longer you go without smokin minutes: blood pressure and pulse return to normal 8 hours: oxygen levels return to normal 2 days: ability to smell and taste begins to improve as damaged nerves start to regrow 2-3 weeks: circulation and lung function improves 1-9 months: decreased cough, congestion and shortness of breath; less tired 1 year: risk of heart attack decreases by half 5 years: risk of lung cancer decreases by half; risk of stroke becomes the same as a non-smoker For information about how to quit smoking, visit the following links: National Cancer [place] , Clearing the Air, Quit Smoking Today - an online booklet. http://www.smokefree.gov/pubs/clearing_the_air.pdf Smokefree.gov http://smokefree.gov/ QuitNet http://www.quitnet.com/ Hydrocodone Bitartrate, Acetaminophen Oral tablet What is this medicine? ACETAMINOPHEN; HYDROCODONE (a set a TREVOR adele fen; china droe KOE done) is a pain reliever. It is used to treat mild to moderate pain. How should I use this medicine? Take this medicine by mouth. Swallow it with a full glass of water. Follow the directions on the prescription label. If the medicine upsets your stomach, take the medicine with food or milk. Do not take more than you are told to take. Talk to your dock attendant regarding the use of this medicine in children. This medicine is not approved for use in children. What side effects may I notice from receiving this medicine? Side effects that you should report to your doctor or health school childcare attendant as soon as possible: allergic reactions like skin rash, itching or hives, swelling of the face, lips, or tongue breathing problems confusion feeling faint or lightheaded, falls stomach pain yellowing of the eyes or skin Side effects that usually do not require medical attention (report to your doctor or health school childcare attendant if they continue or are bothersome): nausea, vomiting stomach upset What may interact with this medicine? alcohol antihistamines isoniazid medicines for depression, anxiety, or psychotic disturbances medicines for sleep muscle relaxants naltrexone narcotic medicines (opiates) for pain phenobarbital ritonavir tramadol What if I miss a dose? If you miss a dose, take it as soon as you can. If it is almost time for your next dose, take only that dose. Do not take double or extra doses. Where should I keep my medicine? Keep out of the reach of children. This medicine can be abused. Keep your medicine in a safe place to protect it from theft. Do not share this medicine with anyone. Selling or giving away this medicine is dangerous and against the law. Store at room temperature between 15 and 30 degrees C (59 and 86 degrees F). Protect from light. Keep container tightly closed. Throw away any unused medicine after the expiration date. Discard unused medicine and used packaging carefully. Pets and children can be harmed if they find used or lost packages. What should I tell my health care provider before I take this medicine? They need to know if you have any of these conditions: brain tumor Crohn's disease, inflammatory bowel disease, or ulcerative colitis drink more than 3 alcohol-containing drinks per day drug abuse or addiction head injury heart or circulation problems kidney disease or problems going to the bathroom liver disease lung disease, asthma, or breathing problems an unusual or allergic reaction to acetaminophen, hydrocodone, other opioid analgesics, other medicines, foods, dyes, or preservatives or trying to get breast-feeding What should I watch for while using this medicine? Tell your doctor or health school childcare attendant if your pain does not go away, if it gets worse, or if you have new or a different type of pain. You may develop tolerance to the medicine. Tolerance means that you will need a higher dose of the medicine for pain relief. Tolerance is normal and is expected if you take the medicine for a long time. Do not suddenly stop taking your medicine because you may develop a severe reaction. Your body becomes used to the medicine. This does NOT mean you are addicted. Addiction is a behavior related to getting and using a drug for a non-medical reason. If you have pain, you have a medical reason to take pain medicine. Your doctor will tell you how much medicine to take. If your doctor wants you to stop the medicine, the dose will be slowly lowered over time to avoid any side effects. You may get drowsy or dizzy when you first start taking the medicine or change doses. Do not drive, use machinery, or do anything that may be dangerous until you know how the medicine affects you. Stand or sit up slowly. There are different types of narcotic medicines (opiates) for pain. If you take more than one type at the same time, you may have more side effects. Give your health care provider a list of all medicines you use. Your doctor will tell you how much medicine to take. Do not take more medicine than directed. Call emergency for help if you have problems breathing. The medicine will cause constipation. Try to have a bowel movement at least every 2 to 3 days. If you do not have a bowel movement for 3 days, call your doctor or health school childcare attendant. Too much acetaminophen can be very dangerous. Do not take Tylenol (acetaminophen) or medicines that contain acetaminophen with this medicine. Many non-prescription medicines contain acetaminophen. Always read the labels carefully. Azithromycin Oral tablet What is this medicine? AZITHROMYCIN (az ith luisfeliciano CARDOZA sin) is a macrolide antibiotic. It is used to treat or prevent certain kinds of bacterial infections. It will not work for colds, flu, or other viral infections. How should I use this medicine? Take this medicine by mouth with a full glass of water. Follow the directions on the prescription label. The tablets can be taken with food or on an empty stomach. If the medicine upsets your stomach, take it with food. Take your medicine at regular intervals. Do not take your medicine more often than directed. Take all of your medicine as directed even if you think your are better. Do not skip doses or stop your medicine early. Talk to your dock attendant regarding the use of this medicine in children. Special care may be needed. What side effects may I notice from receiving this medicine? Side effects that you should report to your doctor or health school childcare attendant as soon as possible: allergic reactions like skin rash, itching or hives, swelling of the face, lips, or tongue confusion, nightmares or hallucinations dark urine difficulty breathing hearing loss irregular heartbeat or chest pain pain or difficulty passing urine redness, blistering, peeling or loosening of the skin, including inside the mouth white patches or sores in the mouth yellowing of the eyes or skin Side effects that usually do not require medical attention (report to your doctor or health school childcare attendant if they continue or are bothersome): diarrhea dizziness, drowsiness headache stomach upset or vomiting tooth discoloration vaginal irritation What may interact with this medicine? Do not take this medicine with any of the following medications: lincomycin This medicine may also interact with the following medications: amiodarone antacids cyclosporine digoxin magnesium nelfinavir phenytoin warfarin What if I miss a dose? If you miss a dose, take it as soon as you can. If it is almost time for your next dose, take only that dose. Do not take double or extra doses. Where should I keep my medicine? Keep out of the reach of children. Store at room temperature between 15 and 30 degrees C (59 and 86 degrees F). Throw away any unused medicine after the expiration date. What should I tell my health care provider before I take this medicine? They need to know if you have any of these conditions: kidney disease liver disease irregular heartbeat or heart disease an unusual or allergic reaction to azithromycin, erythromycin, other macrolide antibiotics, foods, dyes, or preservatives or trying to get breast-feeding What should I watch for while using this medicine? Tell your doctor or health school childcare attendant if your symptoms do not improve. Do not treat diarrhea with over the counter products. Contact your doctor if you have diarrhea that lasts more than 2 days or if it is severe and watery. This medicine can make you more sensitive to the sun. Keep out of the sun. If you cannot avoid being in the sun, wear protective clothing and use sunscreen. Do not use sun lamps or tanning beds/booths. Prednisone Oral tablet What is this medicine? PREDNISONE (PRED ni sone) is a corticosteroid. It is commonly used to treat inflammation of the skin, joints, lungs, and other organs. Common conditions treated include asthma, allergies, and arthritis. It is also used for other conditions, such as blood disorders and diseases of the adrenal glands. How should I use this medicine? Take this medicine by mouth with a glass of water. Follow the directions on the prescription label. Take this medicine with food. If you are taking this medicine once a day, take it in the morning. Do not take more medicine than you are told to take. Do not suddenly stop taking your medicine because you may develop a severe reaction. Your doctor will tell you how much medicine to take. If your doctor wants you to stop the medicine, the dose may be slowly lowered over time to avoid any side effects. Talk to your dock attendant regarding the use of this medicine in children. Special care may be needed. What side effects may I notice from receiving this medicine? Side effects that you should report to your doctor or health school childcare attendant as soon as possible: allergic reactions like skin rash, itching or hives, swelling of the face, lips, or tongue changes in emotions or moods changes in vision depressed mood eye pain fever or chills, cough, sore throat, pain or difficulty passing urine increased thirst swelling of ankles, feet Side effects that usually do not require medical attention (report to your doctor or health school childcare attendant if they continue or are bothersome): confusion, excitement, restlessness headache nausea, vomiting skin problems, acne, thin and shiny skin trouble sleeping weight gain What may interact with this medicine? Do not take this medicine with any of the following medications: metyrapone mifepristone This medicine may also interact with the following medications: aminoglutethimide amphotericin B aspirin and aspirin-like medicines barbiturates certain medicines for diabetes, like glipizide or glyburide cholestyramine cholinesterase inhibitors cyclosporine digoxin diuretics ephedrine female hormones, like estrogens and control pills isoniazid ketoconazole NSAIDS, medicines for pain and inflammation, like ibuprofen or naproxen phenytoin rifampin toxoids vaccines warfarin What if I miss a dose? If you miss a dose, take it as soon as you can. If it is almost time for your next dose, talk to your doctor or health school childcare attendant. You may need to miss a dose or take an extra dose. Do not take double or extra doses without advice. Where should I keep my medicine? Keep out of the reach of children. Store at room temperature between 15 and 30 degrees C (59 and 86 degrees F). Protect from light. Keep container tightly closed. Throw away any unused medicine after the expiration date. What should I tell my health care provider before I take this medicine? They need to know if you have any of these conditions: Smith's syndrome diabetes glaucoma heart disease high blood pressure infection (especially a virus infection such as chickenpox, cold sores, or herpes) kidney disease liver disease mental illness myasthenia gravis osteoporosis seizures stomach or intestine problems thyroid disease an unusual or allergic reaction to lactose, prednisone, other medicines, foods, dyes, or preservatives or trying to get breast-feeding What should I watch for while using this medicine? Visit your doctor or health school childcare attendant for regular checks on your progress. If you are taking this medicine over a prolonged period, carry an identification card with your name and address, the type and dose of your medicine, and your doctor's name and address. This medicine may increase your risk of getting an infection. Tell your doctor or health school childcare attendant if you are around anyone with measles or chickenpox, or if you develop sores or blisters that do not heal properly. If you are going to have surgery, tell your doctor or health school childcare attendant that you have taken this medicine within the last twelve months. Ask your doctor or health school childcare attendant about your diet. You may need to lower the amount of salt you eat. This medicine may affect blood sugar levels. If you have diabetes, check with your doctor or health school childcare attendant before you change your diet or the dose of your diabetic medicine. You have been given the following additional information: COPD Flare Fall, Mechanical Chest Wall Contusion Smoking Cessation Hydrocodone Bitartrate, Acetaminophen Oral tablet Azithromycin Oral tablet Prednisone Oral tablet (Electronically signed by Monster Gusman DO 06/13/2016 13:33)
--- NOTE | 2016-06-13 13:34 | ED MED RECONCILIATION SUMMARY ---
Patient: WILFREDO GROVE V Medication Reconciliation Report [facility] VisitID: [id number] [address] [place] [address] 60y, F Registration Date/Time: 06/13/2016 Weight: 54.4 kg Height/Length: 65 in. BMI: 20.0 ALLERGIES: Codeine, Penicillins The patient's Home Medications are listed below: CONTINUE TAKING THE FOLLOWING MEDICATIONS: Advair Diskus Inhalation Albuterol Sulfate ER Oral Atrovent HFA Inhalation Coreg Oral Lisinopril Oral PredniSONE Oral 25 mg, weaning- as per pt Sertraline HCl Oral Simvastatin Oral Spiriva HandiHaler Inhalation Ventolin HFA Inhalation The source(s) of the original Home Medication information: patient The following Medications were given to the patient in the Emergency Department: Duoneb [Neb Tx] Neb TX 1 unit dose, administered: 06/13/2016 10:29:00 AM Albuterol [Neb Tx] Neb TX 2 unit dose, administered: 06/13/2016 10:29:00 AM Dilaudid [IVP] IVP 0.5 mg, administered: 06/13/2016 10:38:00 AM SOLU-MEDROL [IVP] IVP 125 mg, administered: 06/13/2016 10:43:00 AM IV NS IV Fluids bolus 0, then 500 mL/hr, administered: 06/13/2016 10:49:00 AM Aspirin [PO] PO 325 mg, administered: 06/13/2016 10:49:00 AM Zofran [IVP] IVP 4 mg, administered: 06/13/2016 10:51:00 AM The following Medications were prescribed to the patient: Hydrocodone/APAP 5mg / 325mg: take 1-2 orally every 8 hours as needed for pain. Dispense ten (10). No refill. -- Monster Gusman DO Zithromax 250 mg tablets: take 2 orally today, followed by 1 daily for the next 4 days. No refills. Substitution is permissible. -- Monster Gusman DO Prednisone 10 mg tablets: take 4 orally every day for 5 days, then 2 every day for 3 days, then 1 every day for 2 days. Dispense twenty-eight (28). No refills. -- Monster Gusman, DO
--- NOTE | 2016-06-13 13:34 | ED DISCHARGE INSTRUCTIONS ---
Patient: WILFREDO GROVE V General Instructions [facility] VisitID: [id number] [place] [address] 60y, F Registration Date/Time: 06/13/2016 Acute exacerbation of COPD (emphysematous) Fall on same level by tripping. Minor blunt chest injury. Left anterior chest wall contusion. INSTRUCTIONS Do not smoke. Seek medical help to quit smoking. (Follow up appt @ 09:05 06/15 w/ Dr. Torres). Warnings: Further evaluation is necessary in order to conduct further tests and assess the possibility of serious illness. It is very important to follow up with a physician. SEDATIVE MEDICATION: You were given sedative medication during your visit. Do not drive or operate dangerous machinery. CONTROLLED SUBSTANCE WARNINGS. GENERAL WARNINGS: Return or contact your physician immediately if your condition worsens or changes unexpectedly, if not improving as expected, or if other problems arise. Your Current Medications: CONTINUE TAKING THE FOLLOWING MEDICATIONS: Advair Diskus Inhalation. Albuterol Sulfate ER Oral. Atrovent HFA Inhalation. Coreg Oral. Lisinopril Oral. PredniSONE Oral : 25 mg, weaning- as per pt. Sertraline HCl Oral. Simvastatin Oral. Spiriva HandiHaler Inhalation. Ventolin HFA Inhalation. Prescription Medications: Hydrocodone/APAP 5mg / 325mg: take 1-2 orally every 8 hours as needed for pain. Dispense ten (10). No refill. Zithromax 250 mg tablets: take 2 orally today, followed by 1 daily for the next 4 days. No refills. Substitution is permissible. Prednisone 10 mg tablets: take 4 orally every day for 5 days, then 2 every day for 3 days, then 1 every day for 2 days. Dispense twenty-eight (28). No refills. Follow-up: Follow up with your doctor AN APPOINTMENT HAS BEEN MADE FOR YOU AT YOUR CLINIC ON MondayMay AT 09:[address] TORRES - PLEASE ARRIVE AT LEAST 5 MIN EARLY. ADDITIONAL INFORMATION COPD Flare Both emphysema and chronic bronchitis are forms of chronic obstructive pulmonary disease (COPD). It is most often caused by many years of smoking tobacco. Many things can make your lung disease suddenly get worse. These causes include the common cold, pneumonia, acute bronchitis, missing doses of your regular breathing medicines, or being around smoke, dust, or other air pollutants. A COPD flare may last 7 to 14 days. Your doctor may prescribe medicineto relax your airways and prevent wheezing. Your doctor may also prescribe antibiotics if he or she thinks you havea bacterial infection. Prednisone can helpease inflammation in a severe attack. Home care Here are things you can do at home: Drink lots of water or other fluids (at least 10 glasses a day) during an attack. This will loosen lung secretions and make it easier to breathe. If you have heart or kidney disease, check with your doctor before you drink extra amounts of fluids. Take prescribed medicine exactly at the times advised. If you have a hand-held inhaler or aerosol breathing medicine, don't use it more than once every 4 hours, unless your doctor tells you to. If you were givenan antibiotic or prednisone, take all of the medicine even if you are feeling better after a few days. Don't smoke. Avoid being aroundthe smoke of others. If you were given an inhaler, use it exactly as directed. If you need to use it more often than prescribed, your condition may be getting worse. Call your doctor. Follow-up care Follow up with your health care provider.If you are 65 or older or have chronic asthma or COPD, you should get a single dose of the pneumococcal vaccine and aflu shot each year. You may need a second dose of the pneumococcal vaccine if you had the first dose at a younger age. Your health care provider will let you know if you need a second dose. For all other people, the usual dose for the pneumococcal vaccine is 1 or 2 shots. Yourprovider can discuss this with you. When to seek medical care Get prompt medical attention ifany of these occur: Increased wheezing or shortness of breath Need to use your inhalers more often than usual without relief Fever of 100.4F(38C) or higher, or as directed by your health care provider Coughing up lots of dark-colored or bloody sputum (mucus) Chest pain with each breath You do not start to improve within 24 hours Mechanical Fall You have had a fall today. It appears that the cause is mechanical. That means that you slipped, tripped or lost your balance. If your fall had been due to fainting or a seizure, further tests would be required. Home Care: Rest today and resume your normal activities when you are feeling back to normal. If you were injured during the fall, follow the advice from your doctor regarding care of your injury. You may use acetaminophen (Tylenol) or ibuprofen (Motrin, Advil) to control pain, unless another pain medicine was prescribed. [NOTE: If you have chronic liver or kidney disease or ever had a stomach ulcer or GI bleeding, talk with your doctor before using these medicines.] Fall Prevention: Was there anything that caused your fall that can be fixed, removed, or replaced? Make your home safe by keeping walkways clear of objects you may trip over. Use non-slip pads under rugs. Do not walk in poorly lit areas. Do not stand on chairs or wobbly ladders. Use caution when reaching overhead or looking upward. This position can cause a loss of balance. Be sure your shoes fit properly, have non-slip bottoms and are in good condition. Be cautious when going up and down curbs, and walking on uneven sidewalks. If your balance is poor, consider using a cane or walker. Stay as active as you can. Balance, flexibility, strength, and endurance all come from exercise. They all play a role in preventing falls. Follow Up with your doctor or as advised by our staff. Get Prompt Medical Attention if any of the following occur: Repeated mechanical falls, or unexplained falls Dizziness, fainting or seizure Severe headache Chest pain or shortness of breath Palpitations (very rapid or very slow or irregular heartbeat) Blood in vomit, stools (black or red color) Weakness of an arm or leg or one side of the face Difficulty with speech or vision Chest Contusion Acontusion is a bruise to the skin, muscle or ribs. It may cause pain, tenderness, swelling and a purplish discoloration. Contusions take a few days to a few weeks to heal. Home Care: Rest. You should not be doing any heavy lifting or strenuous exertion, or any activity that causes pain. You may use acetaminophen (Tylenol) or ibuprofen (Motrin, Advil) to control pain, unless another pain medicine was prescribed. [ NOTE: If you have chronic liver or kidney disease or ever had a stomach ulcer or GI bleeding, talk with your doctor before using these medicines.] Follow Up with your doctor during the next week or as directed. Get Prompt Medical Attention if any of the following occur: Shortness of breath Increasing chest pain with breathing Dizziness, weakness or fainting New or worsening of abdominal pain Fever of 100.4F (38C) or higher, or as directed by your healthcare provider How To Quit Smoking Smoking is one of the hardest habits to break. About half of all those who have ever smoked have been able to quit, and most of those (about 70%) who still smoke want to quit. Here are some of the best ways to stop smoking. Keep Trying: It takes most smokers about 8 tries before they are finally able to fully quit. So, the more often you try and fail, the better your chance of quitting the next time! So, don't give up! Go Cold Freedom: Most ex-smokers quit cold turkey. Trying to cut back gradually doesn't seem to work as well, perhaps because it continues the smoking habit. Also, it is possible to fool yourself by inhaling more while smoking fewer cigarettes. This results in the same amount of nicotine in your body! Get Support: Support programs can make an important difference, especially for the heavy smoker. These groups offer lectures, methods to change your behavior and peer support. Call the free national Quitline for more information. 979-CFVN-YHA (504-902-8067). Low-cost or free programs are offered by many hospitals, local chapters of the [place] [employer] (740-331-3121) and the [place] [employer] (275-973-7059). Support at home is important too. Non-smokers can help by offering praise and encouragement. If the smoker fails to quit, encourage them to try again! Mzdl-Zrr-Kzrlabb Medicines: For those who can't quit on their own, Nicotine Replacement Therapy (NRT) may make quitting much easier. Certain aids such as the nicotine patch, gum and lozenge are available without a prescription. However, it is best to use these under the guidance of your doctor. The skin patch provides a steady supply of nicotine to the body. Nicotine gum and lozenge gives temporary bursts of low levels of nicotine. Both methods take the edge off the craving for cigarettes. WARNING: If you feel symptoms of nicotine overdose, such as nausea, vomiting, dizziness, weakness, or fast heartbeat, stop using these and see your doctor. Prescription Medicines: After evaluating your smoking patterns and prior attempts at quitting, your doctor may offer a prescription medicine such as bupropion (Zyban, Wellbutrin), varenicline (Chantix, Champix), a niocotine inhaler or nasal spray. Each has its unique advantage and side effects which your doctor can review with you. Health Benefits Of Quitting: The benefits of quitting start right away and keep improving the longer you go without smokin minutes: blood pressure and pulse return to normal 8 hours: oxygen levels return to normal 2 days: ability to smell and taste begins to improve as damaged nerves start to regrow 2-3 weeks: circulation and lung function improves 1-9 months: decreased cough, congestion and shortness of breath; less tired 1 year: risk of heart attack decreases by half 5 years: risk of lung cancer decreases by half; risk of stroke becomes the same as a non-smoker For information about how to quit smoking, visit the following links: National Cancer [place] , Clearing the Air, Quit Smoking Today - an online booklet. http://www.smokefree.gov/pubs/clearing_the_air.pdf Smokefree.gov http://smokefree.gov/ QuitNet http://www.quitnet.com/ Hydrocodone Bitartrate, Acetaminophen Oral tablet What is this medicine? ACETAMINOPHEN; HYDROCODONE (a set a TREVOR adele fen; china droe KOE done) is a pain reliever. It is used to treat mild to moderate pain. How should I use this medicine? Take this medicine by mouth. Swallow it with a full glass of water. Follow the directions on the prescription label. If the medicine upsets your stomach, take the medicine with food or milk. Do not take more than you are told to take. Talk to your corporate events director regarding the use of this medicine in children. This medicine is not approved for use in children. What side effects may I notice from receiving this medicine? Side effects that you should report to your doctor or health healthcare science specialist as soon as possible: allergic reactions like skin rash, itching or hives, swelling of the face, lips, or tongue breathing problems confusion feeling faint or lightheaded, falls stomach pain yellowing of the eyes or skin Side effects that usually do not require medical attention (report to your doctor or health healthcare science specialist if they continue or are bothersome): nausea, vomiting stomach upset What may interact with this medicine? alcohol antihistamines isoniazid medicines for depression, anxiety, or psychotic disturbances medicines for sleep muscle relaxants naltrexone narcotic medicines (opiates) for pain phenobarbital ritonavir tramadol What if I miss a dose? If you miss a dose, take it as soon as you can. If it is almost time for your next dose, take only that dose. Do not take double or extra doses. Where should I keep my medicine? Keep out of the reach of children. This medicine can be abused. Keep your medicine in a safe place to protect it from theft. Do not share this medicine with anyone. Selling or giving away this medicine is dangerous and against the law. Store at room temperature between 15 and 30 degrees C (59 and 86 degrees F). Protect from light. Keep container tightly closed. Throw away any unused medicine after the expiration date. Discard unused medicine and used packaging carefully. Pets and children can be harmed if they find used or lost packages. What should I tell my health care provider before I take this medicine? They need to know if you have any of these conditions: brain tumor Crohn's disease, inflammatory bowel disease, or ulcerative colitis drink more than 3 alcohol-containing drinks per day drug abuse or addiction head injury heart or circulation problems kidney disease or problems going to the bathroom liver disease lung disease, asthma, or breathing problems an unusual or allergic reaction to acetaminophen, hydrocodone, other opioid analgesics, other medicines, foods, dyes, or preservatives or trying to get breast-feeding What should I watch for while using this medicine? Tell your doctor or health healthcare science specialist if your pain does not go away, if it gets worse, or if you have new or a different type of pain. You may develop tolerance to the medicine. Tolerance means that you will need a higher dose of the medicine for pain relief. Tolerance is normal and is expected if you take the medicine for a long time. Do not suddenly stop taking your medicine because you may develop a severe reaction. Your body becomes used to the medicine. This does NOT mean you are addicted. Addiction is a behavior related to getting and using a drug for a non-medical reason. If you have pain, you have a medical reason to take pain medicine. Your doctor will tell you how much medicine to take. If your doctor wants you to stop the medicine, the dose will be slowly lowered over time to avoid any side effects. You may get drowsy or dizzy when you first start taking the medicine or change doses. Do not drive, use machinery, or do anything that may be dangerous until you know how the medicine affects you. Stand or sit up slowly. There are different types of narcotic medicines (opiates) for pain. If you take more than one type at the same time, you may have more side effects. Give your health care provider a list of all medicines you use. Your doctor will tell you how much medicine to take. Do not take more medicine than directed. Call emergency for help if you have problems breathing. The medicine will cause constipation. Try to have a bowel movement at least every 2 to 3 days. If you do not have a bowel movement for 3 days, call your doctor or health healthcare science specialist. Too much acetaminophen can be very dangerous. Do not take Tylenol (acetaminophen) or medicines that contain acetaminophen with this medicine. Many non-prescription medicines contain acetaminophen. Always read the labels carefully. Azithromycin Oral tablet What is this medicine? AZITHROMYCIN (az ith luisfeliciano CARDOZA sin) is a macrolide antibiotic. It is used to treat or prevent certain kinds of bacterial infections. It will not work for colds, flu, or other viral infections. How should I use this medicine? Take this medicine by mouth with a full glass of water. Follow the directions on the prescription label. The tablets can be taken with food or on an empty stomach. If the medicine upsets your stomach, take it with food. Take your medicine at regular intervals. Do not take your medicine more often than directed. Take all of your medicine as directed even if you think your are better. Do not skip doses or stop your medicine early. Talk to your corporate events director regarding the use of this medicine in children. Special care may be needed. What side effects may I notice from receiving this medicine? Side effects that you should report to your doctor or health healthcare science specialist as soon as possible: allergic reactions like skin rash, itching or hives, swelling of the face, lips, or tongue confusion, nightmares or hallucinations dark urine difficulty breathing hearing loss irregular heartbeat or chest pain pain or difficulty passing urine redness, blistering, peeling or loosening of the skin, including inside the mouth white patches or sores in the mouth yellowing of the eyes or skin Side effects that usually do not require medical attention (report to your doctor or health healthcare science specialist if they continue or are bothersome): diarrhea dizziness, drowsiness headache stomach upset or vomiting tooth discoloration vaginal irritation What may interact with this medicine? Do not take this medicine with any of the following medications: lincomycin This medicine may also interact with the following medications: amiodarone antacids cyclosporine digoxin magnesium nelfinavir phenytoin warfarin What if I miss a dose? If you miss a dose, take it as soon as you can. If it is almost time for your next dose, take only that dose. Do not take double or extra doses. Where should I keep my medicine? Keep out of the reach of children. Store at room temperature between 15 and 30 degrees C (59 and 86 degrees F). Throw away any unused medicine after the expiration date. What should I tell my health care provider before I take this medicine? They need to know if you have any of these conditions: kidney disease liver disease irregular heartbeat or heart disease an unusual or allergic reaction to azithromycin, erythromycin, other macrolide antibiotics, foods, dyes, or preservatives or trying to get breast-feeding What should I watch for while using this medicine? Tell your doctor or health healthcare science specialist if your symptoms do not improve. Do not treat diarrhea with over the counter products. Contact your doctor if you have diarrhea that lasts more than 2 days or if it is severe and watery. This medicine can make you more sensitive to the sun. Keep out of the sun. If you cannot avoid being in the sun, wear protective clothing and use sunscreen. Do not use sun lamps or tanning beds/booths. Prednisone Oral tablet What is this medicine? PREDNISONE (PRED ni sone) is a corticosteroid. It is commonly used to treat inflammation of the skin, joints, lungs, and other organs. Common conditions treated include asthma, allergies, and arthritis. It is also used for other conditions, such as blood disorders and diseases of the adrenal glands. How should I use this medicine? Take this medicine by mouth with a glass of water. Follow the directions on the prescription label. Take this medicine with food. If you are taking this medicine once a day, take it in the morning. Do not take more medicine than you are told to take. Do not suddenly stop taking your medicine because you may develop a severe reaction. Your doctor will tell you how much medicine to take. If your doctor wants you to stop the medicine, the dose may be slowly lowered over time to avoid any side effects. Talk to your corporate events director regarding the use of this medicine in children. Special care may be needed. What side effects may I notice from receiving this medicine? Side effects that you should report to your doctor or health healthcare science specialist as soon as possible: allergic reactions like skin rash, itching or hives, swelling of the face, lips, or tongue changes in emotions or moods changes in vision depressed mood eye pain fever or chills, cough, sore throat, pain or difficulty passing urine increased thirst swelling of ankles, feet Side effects that usually do not require medical attention (report to your doctor or health healthcare science specialist if they continue or are bothersome): confusion, excitement, restlessness headache nausea, vomiting skin problems, acne, thin and shiny skin trouble sleeping weight gain What may interact with this medicine? Do not take this medicine with any of the following medications: metyrapone mifepristone This medicine may also interact with the following medications: aminoglutethimide amphotericin B aspirin and aspirin-like medicines barbiturates certain medicines for diabetes, like glipizide or glyburide cholestyramine cholinesterase inhibitors cyclosporine digoxin diuretics ephedrine female hormones, like estrogens and control pills isoniazid ketoconazole NSAIDS, medicines for pain and inflammation, like ibuprofen or naproxen phenytoin rifampin toxoids vaccines warfarin What if I miss a dose? If you miss a dose, take it as soon as you can. If it is almost time for your next dose, talk to your doctor or health healthcare science specialist. You may need to miss a dose or take an extra dose. Do not take double or extra doses without advice. Where should I keep my medicine? Keep out of the reach of children. Store at room temperature between 15 and 30 degrees C (59 and 86 degrees F). Protect from light. Keep container tightly closed. Throw away any unused medicine after the expiration date. What should I tell my health care provider before I take this medicine? They need to know if you have any of these conditions: Smith's syndrome diabetes glaucoma heart disease high blood pressure infection (especially a virus infection such as chickenpox, cold sores, or herpes) kidney disease liver disease mental illness myasthenia gravis osteoporosis seizures stomach or intestine problems thyroid disease an unusual or allergic reaction to lactose, prednisone, other medicines, foods, dyes, or preservatives or trying to get breast-feeding What should I watch for while using this medicine? Visit your doctor or health healthcare science specialist for regular checks on your progress. If you are taking this medicine over a prolonged period, carry an identification card with your name and address, the type and dose of your medicine, and your doctor's name and address. This medicine may increase your risk of getting an infection. Tell your doctor or health healthcare science specialist if you are around anyone with measles or chickenpox, or if you develop sores or blisters that do not heal properly. If you are going to have surgery, tell your doctor or health healthcare science specialist that you have taken this medicine within the last twelve months. Ask your doctor or health healthcare science specialist about your diet. You may need to lower the amount of salt you eat. This medicine may affect blood sugar levels. If you have diabetes, check with your doctor or health healthcare science specialist before you change your diet or the dose of your diabetic medicine. You have been given the following additional information: COPD Flare Fall, Mechanical Chest Wall Contusion Smoking Cessation Hydrocodone Bitartrate, Acetaminophen Oral tablet Azithromycin Oral tablet Prednisone Oral tablet (Electronically signed by Monster Gusman DO 06/13/2016 13:33)
--- NOTE | 2016-06-13 13:34 | ED MAR SUMMARY ---
..... Medication Administration Record [facility] [address] [place] [address] Patient: WILFREDO GROVE V Visit ID: [id number] 60y, F Weight: 54.4 kg Height/Length: 65 in BMI: 20 ALLERGIES: Codeine, Penicillins Given 10:29 06/13/2016 Shiela Madison, Medication Administered: DUONEB [NEB TX] (IPRATROPIUM-ALBUTEROL), Dose: 1 unit dose Nebulizer Neb TX. Medication Ordered: DuoNeb Neb Tx 1 unit dose (NOW). Given 10:06/13/2016 Shiela Madison, Medication Administered: ALBUTEROL [NEB TX], Dose: 2 unit dose Nebulizer Neb TX. Medication Ordered: Albuterol Neb Tx 2 unit doses (NOW, HHN). Given 10:38 06/13/2016 Krupa Ott R.N. Medication Administered: DILAUDID [IVP] (HYDROMORPHONE HCL PF), Dose: 0.5 mg IVP, Site: #1 left AC. Medication Ordered: Dilaudid IV 0.5 mg (HIGH ALERT MEDICATION, NOW). Given 10:43 06/13/2016 Krupa Ott R.N. Medication Administered: SOLU-MEDROL [IVP] (METHYLPREDNISOLONE SODIUM SUCC), Dose: 125 mg IVP over 2 minute(s), Site: #1 left AC. Medication Ordered: Solu-MEDROL IV 125 mg (NOW). Given 10:49 06/13/2016 Krupa Ott R.N. Medication Administered: ASPIRIN [PO], Dose: 325 mg Tablets PO. Medication Ordered: Aspirin PO 325 mg (NOW). Start 10:49 06/13/2016 Krupa Ott R.N., Stop 12:00 06/13/2016 Krupa Ott R.N. Medication Administered: IV NS (SALINE), Dose: IV Fluids over 1 hour(s), Rate: 500 mL/hr, Dispensed: 500 mL bag, Site: #1 left AC. Medication Ordered: IV NS : initial bolus 500 mL (1000 mL/hr), then 250 mL/hr for X2 (NOW). Given 10:51 06/13/2016 Krupa Ott R.N. Medication Administered: ZOFRAN [IVP] (ONDANSETRON HCL), Dose: 4 mg IVP over 2 minute(s), Site: #1 left AC. Medication Ordered: Zofran IV 4 mg (NOW).
--- NOTE | 2016-06-13 13:34 | ED MAR SUMMARY ---
..... Medication Administration Record [facility] [address] [place] [address] Patient: WILFREDO GROVE V Visit ID: [id number] 60y, F Weight: 54.4 kg Height/Length: 65 in BMI: 20 ALLERGIES: Codeine, Penicillins Given 10:29 06/13/2016 Shiela Madison, Medication Administered: DUONEB [NEB TX] (IPRATROPIUM-ALBUTEROL), Dose: 1 unit dose Nebulizer Neb TX. Medication Ordered: DuoNeb Neb Tx 1 unit dose (NOW). Given 10:06/13/2016 Shiela Madison, Medication Administered: ALBUTEROL [NEB TX], Dose: 2 unit dose Nebulizer Neb TX. Medication Ordered: Albuterol Neb Tx 2 unit doses (NOW, HHN). Given 10:38 06/13/2016 Krupa Ott R.N. Medication Administered: DILAUDID [IVP] (HYDROMORPHONE HCL PF), Dose: 0.5 mg IVP, Site: #1 left AC. Medication Ordered: Dilaudid IV 0.5 mg (HIGH ALERT MEDICATION, NOW). Given 10:43 06/13/2016 Krupa Ott R.N. Medication Administered: SOLU-MEDROL [IVP] (METHYLPREDNISOLONE SODIUM SUCC), Dose: 125 mg IVP over 2 minute(s), Site: #1 left AC. Medication Ordered: Solu-MEDROL IV 125 mg (NOW). Given 10:49 06/13/2016 Krupa Ott R.N. Medication Administered: ASPIRIN [PO], Dose: 325 mg Tablets PO. Medication Ordered: Aspirin PO 325 mg (NOW). Start 10:49 06/13/2016 Krupa Ott R.N., Stop 12:00 06/13/2016 Krupa Ott R.N. Medication Administered: IV NS (SALINE), Dose: IV Fluids over 1 hour(s), Rate: 500 mL/hr, Dispensed: 500 mL bag, Site: #1 left AC. Medication Ordered: IV NS : initial bolus 500 mL (1000 mL/hr), then 250 mL/hr for X2 (NOW). Given 10:51 06/13/2016 Krupa Ott R.N. Medication Administered: ZOFRAN [IVP] (ONDANSETRON HCL), Dose: 4 mg IVP over 2 minute(s), Site: #1 left AC. Medication Ordered: Zofran IV 4 mg (NOW).
== END 2016-06-13 12:10 | disposition home or self-care (01) ==
LOC: ED SRH 10:09
DX: S20.212A Contusion of left front wall of thorax, initial encounter (principal); J44.1 Chronic obstructive pulmonary disease with (acute) exacerbation; W01.198A Fall on same level from slipping, tripping and stumbling with subsequent striking against other object, initial encounter; Y92.9 Unspecified place or not applicable; Y93.9 Activity, unspecified; Y99.9 Unspecified external cause status; Z99.81 Dependence on supplemental oxygen; Z79.899 Other long term (current) drug therapy; Z88.0 Allergy status to penicillin; Z88.5 Allergy status to narcotic agent
CPT/HCPCS: 90004; 90100; 90148; 90469; 90616; 91320; 91556; 92530; 92610; 92720; 92760; 92761; 92762; 92763; 92764; 92765; 92766; 92767; 94060; 95059